=== PATIENT | male | born 1955 | race Caucasian/White ===

== ENCOUNTER 2025-03-05 13:16 | Emergency (ER) | payer MEDICARE ==
[~2025-03-05 13:16] MED LIST: Iopamidol 300 61% 100 ML VIAL FS ONE
[2025-03-05 13:50] LABS: Hematocrit 38.4 % (38.8-50.0); Hemoglobin 12.2 g/dL (13.5-17.5); Mean Corpuscular Hemoglobin 26.5 pg (27.0-33.0); Mean Corpuscular Volume 83.3 fL (81.2-95.1); Platelet Count 495 10x3/uL (150-450); Red Blood Cell (RBC) Count 4.61 10x6/uL (4.32-5.72); White Blood Cell (WBC) Count 18.11 10x3/uL (3.5-10.5)
[2025-03-05 14:05] LABS: ALT (SGPT) 56 U/L (Less than 45); AST (SGOT) 42 U/L (11-34); Albumin 2.7 g/dL (3.1-4.5); Alkaline Phosphatase 375 U/L (40-110); Anion Gap 12 mmol/L (10-20); BUN (Urea Nitrogen) 14 mg/dL (8.4-25.7); Bilirubin, Total 1.8 mg/dL (0.3-1.2); Calc. Creatinine Clearance 0 mL/min (70-130); Calcium 11.9 mg/dL (7.8-10.44); Carbon Dioxide 27 mmol/L (23-31); Chloride 100 mmol/L (98-107); Globulin 4.0 g/dL (2.4-3.5); Glucose 95 mg/dL (80-115); Lipase 17 U/L (8-78); Potassium 4.8 mmol/L (3.5-5.1); Sodium 134 mmol/L (136-145)
[2025-03-05] MEDS ORDERED: Ondansetron PF 4 MG/2 ML Vial ONE (14:10)
[2025-03-05] MEDS ORDERED: Ketorolac Tromethamine 30 MG (1 mL) VIAL ONE (14:10)
[2025-03-05 14:12] LABS: Troponin I 0.010 ng/mL (< 0.028)
[2025-03-05 14:23] LABS: Anisocytosis SLIGHT = 6-15 cells (100X) (0-5/hpf); MDiff Complete? YES; Platelet Adequacy Comment Appears Increased; Polychromasia SLIGHT = 2-3 cells (100X) (0-2/hpf)
[2025-03-05 14:24] LABS: Reflex for Review?? YES
[2025-03-05] MEDS ORDERED: metroNIDAZOLE 500 MG (100 mL) BAG ONE (15:05)
[2025-03-05] MEDS ORDERED: cefTRIAXone (ROCEPHIN) 1 GM VIAL ONE (15:05)
== END 2025-03-05 22:32 | disposition short-term general hospital (02) ==
LOC: CSHERS 13:16
DX: K86.89 Other specified diseases of pancreas (principal); C78.7 Secondary malignant neoplasm of liver and intrahepatic bile duct; I48.91 Unspecified atrial fibrillation; Z79.01 Long term (current) use of anticoagulants; Z86.73 Personal history of transient ischemic attack (TIA), and cerebral infarction without residual deficits
CPT/HCPCS: 71045; 74177; 80053; 83690; 84484; 85025; 93005; J0696; J1885; J2405; Q9967; 85060; 96365; 96375